=== PATIENT | female | born 1940 | race Caucasian/White ===

== ENCOUNTER 2017-10-15 10:24 | Inpatient (IN) | payer MEDICARE, OTHER ==
[~2017-10-15] VITALS: Ht 172.7 cm; Wt 68.9 kg
[2017-10-15] MEDS ORDERED: ONDANSETRON HCL/PF 4 MG/2 ML VIAL IVP ONE (10:30)
[2017-10-15] MEDS ORDERED: MORPHINE SULFATE INJ 2 MG/ML DISP.SYRIN IV ONE ×2 (10:30→11:30)
--- NOTE | 2017-10-15 10:30 | NUR ---
BBRA FROM STREET: RIGHT HIP FRACTURE/EXTERNALLY ROTATED S/P TRIP AND FALL MORPHINE 8MG IV GIVEN IN FIELD BY EMS. PT HAS LAC #18 IV ACCESS TRAIN CONTROL ELECTRONIC TECHNICIAN. PLACED ON MONITOR. AWAITING MD ORDER
[2017-10-15] MEDS ORDERED: MORPHINE SULFATE INJ 2 MG/ML DISP.SYRIN ONE ×2 (10:36→11:53)
[2017-10-15] MEDS ORDERED: ONDANSETRON HCL/PF 4 MG/2 ML VIAL ONE (10:36)
[2017-10-15] MEDS ORDERED: MORPHINE SULFATE INJ 4 MG/ML DISP.SYRIN ONE ×2 (10:37→11:54)
[2017-10-15 10:54] LABS: BASOPHILS % (AUTO) 0.4 % (0.0-2.0); EOSINOPHILS # (AUTO) 0.1 /CMM (0.0-0.7); EOSINOPHILS % (AUTO) 1.2 % (0.0-6.0); HEMATOCRIT 46 % (33-45); HEMOGLOBIN 16.2 g/dL (11.5-14.8); LYMPHOCYTES # (AUTO) 1.8 /CMM (0.8-4.8); LYMPHOCYTES % (AUTO) 23.6 % (20.0-44.0); MEAN CORPUSCULAR HEMOGLOBIN 32 PG (26.0-33.0); MEAN CORPUSCULAR HGB CONC 35 g/dl (31.0-36.0); MEAN CORPUSCULAR VOLUME 92 fL (82-100); MONOCYTES # (AUTO) 0.4 /CMM (0.1-1.30); MONOCYTES % (AUTO) 5.9 % (2.0-12.0); NEUTROPHILS # (AUTO) 5.3 /CMM (1.8-8.9); NEUTROPHILS % (AUTO) 68.9 % (43.0-81.0); PLATELET COUNT (AUTO) 206 /CMM (150-450); RDW COEFFICIENT OF VARIATION 11.1 (11.5-15.0); RED BLOOD CELL COUNT(AUTO) 5.03 MIL/uL (4.0-5.2); WHITE BLOOD COUNT (AUTO) 7.6 K/uL (4.3-11.0)
[2017-10-15] MEDS ORDERED: TRAV5DRO EACHEYE (10:59)
[2017-10-15] MEDS ORDERED: DULO60CA45 PO (10:59)
[2017-10-15] MEDS ORDERED: VORT20TA PO (10:59)
[2017-10-15] MEDS ORDERED: PRAV40TA3 PO (10:59)
[2017-10-15] MEDS ORDERED: LEVO75TA56 PO (10:59)
[2017-10-15] MEDS ORDERED: IBAN150T PO (11:00)
[2017-10-15 11:08] LABS: CALCIUM, SERUM 9.2 mg/dL (8.5-10.1); CARBON DIOXIDE 25 mmol/L (21-32); CHLORIDE 104 mmol/L (98-107); CREATININE 0.9 mg/dL (0.6-1.3); GLUCOSE 138 mg/dL (74-106); POTASSIUM 3.8 mmol/L (3.5-5.1); SODIUM SERUM 137 mmol/L (136-145); UREA NITROGEN, BLOOD 19 mg/dL (7-18)
[2017-10-15 11:11] LABS: INR 0.92 (0.87-1.13); PROTHROMBIN TIME 9.6 SECS (9.5-12.7)
--- NOTE | 2017-10-15 11:12 | NUR ---
CALLED OR, PAGED TO CALL US BACK
--- NOTE | 2017-10-15 12:01 | NUR ---
DR.RUTHERFORD GILLES MOLD SETTER
--- NOTE | 2017-10-15 12:15 | NUR ---
GAVE REPORT TO ALEJANDRA COOPER MEDSUR ROOM 306-1 DR MCKEE ACCEPTING
[2017-10-15] MEDS ORDERED: ONDANSETRON HCL/PF 4 MG/2 ML VIAL IVP PRN (12:30)
[2017-10-15] MEDS ORDERED: HYDROCODONE/APAP 10/325MG 1 EA TABLET PO PRN (12:30)
[2017-10-15] MEDS ORDERED: Z GUARD REMEDY 2 OZ OINT TP PRN (12:30)
[2017-10-15] MEDS ORDERED: MAG HYDROX/AL HYDROX/SIMETH 30 ML UDC PO PRN (12:30)
[2017-10-15] MEDS ORDERED: ACETAMINOPHEN 325 MG TABLET PO PRN (12:30)
[2017-10-15] MEDS ORDERED: ZOLPIDEM TARTRATE 5 MG TABLET PO PRN (12:30)
[2017-10-15] MEDS ORDERED: MAGNESIUM HYDROXIDE 30 ML UDC PO PRN (12:30)
[2017-10-15 14:39] LABS: PHOSPHORUS 2.7 mg/dL (2.5-4.9)
[2017-10-15 15:13] LABS: THYROID STIMULATING HORMONE 1.812 uIU/mL (0.358-3.74)
--- NOTE | 2017-10-15 15:13 | NUR ---
RN MS NOTES PT SEEN AND EXAMINED BY MISAEL PADRON, PLAN OF CARE DISCUSSED WITH PT, VERBALIZED UNDERSTANDING, MISAEL SPOKE WITH PT'S DAUGHTER BILL, INFORMED OF PLAN FOR SURGERY, ORDERS MADE.
[2017-10-15 16:00] VITALS: BP 111/75
[2017-10-15] MEDS: DULOXETINE HCL 30 MG CAPSULE.DR PO SCH (16:13)
[2017-10-15] MEDS: MORPHINE SULFATE INJ 2 MG/ML DISP.SYRIN IV PRN ×2 (16:14→21:24)
--- NOTE | 2017-10-15 18:30 | NUR ---
RN MS NOTES PT IN BED, AWAKE, ALERT AND ORIENTED, NOT IN DISTRESS, PAIN MEDICATION GIVEN ORDERED, PT GAVE CONSENT FOR RIGHT HIP INTRAMEDULLARY RODDING SCHEDULED FOR TOMORROW, DAUGHTER BROUGHT PT'S JEWELRY HOME, BELONGINGS LIST UPDATED, PT INFORMED OF PRE-OP PREPARATION, CALL LIGHT WITHIN REACH, ALL NEEDS ATTENDED.
[2017-10-15 20:00] VITALS: BP 127/73
--- NOTE | 2017-10-15 20:00 | NUR ---
MS/RN RECEIVE PATIENT AWAKE, ALERT, ORIENTED, COMFORTABLE, NO DISTRESS NOTED. SURGERY IN THE MORNING, TEACHINGS DONE, NPO AFTER MIDNIGHT, VERBALIZED UNDERSTANDING. CALL LIGHT IN REACH. WILL MONITOR.
[2017-10-15] MEDS: ATORVASTATIN 10 MG TABLET PO SCH (21:23)
[2017-10-15] MEDS: LATANOPROST EYE DROP 0.005% 2.5 ML BOTTLE EACHEYE SCH (22:00)
--- NOTE | 2017-10-15 22:30 | NUR ---
MS/RN PATIENT IS SLEEPING AT THIS TIME, AROUSABLE, APPEAR COMFORTABLE, NO SIGNS OF DISTRESS NOTED, CALL LIGHT IN REACH. WILL MONITOR.
[2017-10-16] VITALS (7 sets, daily range): BP systolic 91–172; BP diastolic 30–85
[2017-10-16 02:52] LABS: APPEARANCE,URINE CLEAR (CLEAR); BILIRUBIN,URINE NEGATIVE (NEGATIVE); BLOOD, URINE 1+ Ery/uL (NEGATIVE); COLOR,URINE YELLOW (YELLOW); KETONES,URINE NEGATIVE (NEGATIVE); LEUKOCYTE ESTERASE ,URINE NEGATIVE (NEGATIVE); NITRITE, URINE NEGATIVE (NEGATIVE); PROTEIN,URINE NEGATIVE (NEGATIVE); UGLUCOSE NEGATIVE (NEGATIVE); UROBILINOGEN,URINE 0.2 EU/dL (0.2)
[2017-10-16 03:07] LABS: BACTERIA,URINE None seen /HPF (None Seen); SQUAMOUS EPITHELIAL CELL,UR Few /HPF (None Seen)
[2017-10-16] MEDS: MORPHINE SULFATE INJ 2 MG/ML DISP.SYRIN IV PRN (05:26)
--- NOTE | 2017-10-16 06:21 | NUR ---
MS/RN SLEEPING AT THIS TIME, APPEAR COMFORTABLE, BREATHING EVEN AND UNLABORED, HAS BEEN MEDICATED WITH MORPHINE 2 MG IV NEEDED FOR C/O PAIN, NPO AFTER MIDNIGHT ORDERED, MORNING CARE WAS DONE. ALL NEEDS ATTENDED AT THIS TIME. WILL CONTINUE TO MONITOR.
[2017-10-16 06:35] LABS: BASOPHILS % (AUTO) 0.3 % (0.0-2.0); EOSINOPHILS % (AUTO) 0.3 % (0.0-6.0); HEMATOCRIT 43 % (33-45); HEMOGLOBIN 14.3 g/dL (11.5-14.8); LYMPHOCYTES # (AUTO) 1.1 /CMM (0.8-4.8); LYMPHOCYTES % (AUTO) 9.8 % (20.0-44.0); MEAN CORPUSCULAR HEMOGLOBIN 32 PG (26.0-33.0); MEAN CORPUSCULAR HGB CONC 34 g/dl (31.0-36.0); MEAN CORPUSCULAR VOLUME 94 fL (82-100); MONOCYTES # (AUTO) 0.6 /CMM (0.1-1.30); MONOCYTES % (AUTO) 6.1 % (2.0-12.0); NEUTROPHILS # (AUTO) 8.9 /CMM (1.8-8.9); NEUTROPHILS % (AUTO) 83.5 % (43.0-81.0); PLATELET COUNT (AUTO) 195 /CMM (150-450); RDW COEFFICIENT OF VARIATION 12.1 (11.5-15.0); RED BLOOD CELL COUNT(AUTO) 4.51 MIL/uL (4.0-5.2); WHITE BLOOD COUNT (AUTO) 10.7 K/uL (4.3-11.0)
[2017-10-16 06:46] LABS: ALANINE AMINOTRANSFERASE 29 U/L (12-78); ALBUMIN 3.5 g/dL (3.4-5.0); ALKALINE PHOSPHATASE 50 U/L (46-116); ASPARTATE AMINOTRANSFERASE 36 U/L (15-37); BILIRUBIN,TOTAL 0.8 mg/dL (0.2-1.0); CALCIUM, SERUM 8.7 mg/dL (8.5-10.1); CARBON DIOXIDE 32 mmol/L (21-32); CHLORIDE 100 mmol/L (98-107); CREATININE 0.8 mg/dL (0.6-1.3); GLUCOSE 144 mg/dL (74-106); POTASSIUM 3.9 mmol/L (3.5-5.1); SODIUM SERUM 135 mmol/L (136-145); TOTAL PROTEIN, SERUM 6.8 g/dL (6.4-8.2); UREA NITROGEN, BLOOD 21 mg/dL (7-18)
[2017-10-16] MEDS ORDERED: ANESTHESIA TRAY IN PYXIS 1 EA TRAY MC ONE (06:57)
--- NOTE | 2017-10-16 07:10 | NUR ---
RN OPEN NOTES RECEIVED REPORT FROM [employer] CUTTING SUPERVISOR NURSE. PATIENT IS ALERT AND ORIENTED TO NAME, PLACE AND TIME. NO SIGNS AND SYMPTOMS OF DISTRESS. BED IN LOW POSITION, LOCKED AND TWO SIDE RAILS ARE UP. CALL LIGHT WITHIN REACH FOR SAFETY. PRE-OP SURGERY. WILL CONTINUE TO ASSESS AND MONITOR PATIENT THROUGH OUT MY SHIFT
[2017-10-16] MEDS ORDERED: BACITRACIN 50000 UNITS/VIAL ONE (07:11)
[2017-10-16] MEDS ORDERED: BUPIVACAINE 0.5 % PF 150 MG/30 ML VIAL ONE (07:11)
[2017-10-16] MEDS: PANTOPRAZOLE 40 MG TABLET.DR PO SCH (07:19)
[2017-10-16] MEDS: LEVOTHYROXINE SODIUM 75 MCG TABLET PO SCH (07:19)
[2017-10-16] MEDS: DULOXETINE HCL 30 MG CAPSULE.DR PO SCH (07:20)
--- NOTE | 2017-10-16 07:22 | NUR ---
PATIENT IS OFF THE FLOOR FOR SURGERY
[2017-10-16] MEDS ORDERED: VORTIOXETINE HYDROBROMIDE 20 MG PO SCH (09:00)
--- NOTE | 2017-10-16 10:40 | NUR ---
PATIENT IS BACK TO THE UNIT. PLACED IN HER ROOM 329. PLACED ON VITAL SIGN MONITOR @15 MIN
[2017-10-16] MEDS: IV NS 0.9% 1,000 ML IV PRN ×2 (11:09→21:15)
[2017-10-16] MEDS ORDERED: oxyCODONE IR immediate release 5 MG CAPSULE PO PRN (11:30)
[2017-10-16] MEDS ORDERED: TRAMADOL HCL 50 MG TABLET PO PRN (11:30)
[2017-10-16] MEDS ORDERED: MORPHINE SULFATE INJ 4 MG/ML DISP.SYRIN IV PRN (11:30)
[2017-10-16] MEDS: CEFAZOLIN 2 GM in IV D5W 50 ML IV SCH ×2 (13:24→21:19)
[2017-10-16] MEDS ORDERED: POLYVINYL ALCOHOL 15 ML BOTTLE EACHEYE PRN (14:00)
--- NOTE | 2017-10-16 19:24 | NUR ---
RN CLOSING NOTES REPORT GAVE TO [employer] ARCHITECT NURSE. PATIENT IS IN BED. ALERT AND ORIENTED TO NAME, PLACE AND TIME. NO SIGNS AND SYMPTOMS OF DISTRESS. DENIED PAIN. IV SITE IS INTACT AND PATENT. ALL NURSING CARE ANTICIPATED AND MET. PATIENT KEPT SAFE AND CLEAN. BED IN LOW POSITION, LOCKED AND TWO SIDE RAILS ARE UP. CALL LIGHT WITHIN REACH FOR SAFETY.
--- NOTE | 2017-10-16 19:49 | NUR ---
MS/RN RECEIVE PATIENT AWAKE, ALERT, ORIENTED, S/P RT. HIP SURGERY, COMFORTABLE, NO C/O PAIN, NO DISTRESS NOTED, DRESSING INTACT AND DRY, FALL PRECAUTION. WILL MONITOR.
[2017-10-16] MEDS: LATANOPROST EYE DROP 0.005% 2.5 ML BOTTLE EACHEYE SCH (21:15)
[2017-10-16] MEDS: ATORVASTATIN 10 MG TABLET PO SCH (21:15)
--- NOTE | 2017-10-16 22:00 | NUR ---
MS/RN PATIENT DOES NOT WANT TO BE DISTURBED WHEN SLEEPING.
[2017-10-17] VITALS (7 sets, daily range): BP systolic 106–120; BP diastolic 46–56
[2017-10-17] MEDS: CEFAZOLIN 2 GM in IV D5W 50 ML IV SCH (05:06)
--- NOTE | 2017-10-17 06:03 | NUR ---
MS/RN AWAKE, COMFORTABLE, WATCHING TV, MORNING CARE HAS BEEN DONE, TOLERATED, SLEPT GOOD THE WHOLE SHIFT, ALL NEEDS ATTENDED AT THIS TIME. WILL CONTINUE TO MONITOR.
--- NOTE | 2017-10-17 07:20 | NUR ---
RN OPEN NOTES RECEIVED REPORT FROM EMERGENCY COMMUNICATIONS OFFICER NURSE. PATIENT IS IN BED, AWAKE. PATIENT IS ALERT AND ORIENTED TO NAME, PLACE AND TIME. NO SIGNS AND SYMPTOMS OF DISTRESS. BED IN LOW POSITION, LOCKED AND TWO SIDE RAILS ARE UP. CALL LIGHT WITHIN REACH FOR SAFETY. WILL CONTINUE TO ASSESS AND MONITOR PATIENT THROUGH OUT MY SHIFT
[2017-10-17] MEDS: PANTOPRAZOLE 40 MG TABLET.DR PO SCH (07:21)
[2017-10-17] MEDS: LEVOTHYROXINE SODIUM 75 MCG TABLET PO SCH (07:21)
[2017-10-17] MEDS ORDERED: CA C PO (07:28)
[2017-10-17] MEDS ORDERED: VITA100014 PO (07:28)
[2017-10-17 07:33] LABS: ALANINE AMINOTRANSFERASE 21 U/L (12-78); ALBUMIN 2.5 g/dL (3.4-5.0); ALKALINE PHOSPHATASE 33 U/L (46-116); ASPARTATE AMINOTRANSFERASE 34 U/L (15-37); BILIRUBIN,TOTAL 0.4 mg/dL (0.2-1.0); CALCIUM, SERUM 7.6 mg/dL (8.5-10.1); CARBON DIOXIDE 28 mmol/L (21-32); CHLORIDE 108 mmol/L (98-107); CREATININE 0.9 mg/dL (0.6-1.3); GLUCOSE 125 mg/dL (74-106); PHOSPHORUS 2.6 mg/dL (2.5-4.9); POTASSIUM 3.6 mmol/L (3.5-5.1); SODIUM SERUM 142 mmol/L (136-145); TOTAL PROTEIN, SERUM 5.2 g/dL (6.4-8.2); UREA NITROGEN, BLOOD 16 mg/dL (7-18)
[2017-10-17 08:24] LABS: BASOPHILS % (AUTO) 0.2 % (0.0-2.0); EOSINOPHILS % (AUTO) 0.5 % (0.0-6.0); HEMATOCRIT 25 % (33-45); HEMOGLOBIN 8.6 g/dL (11.5-14.8); LYMPHOCYTES # (AUTO) 1.7 /CMM (0.8-4.8); MEAN CORPUSCULAR HEMOGLOBIN 32 PG (26.0-33.0); MEAN CORPUSCULAR HGB CONC 34 g/dl (31.0-36.0); MEAN CORPUSCULAR VOLUME 94 fL (82-100); MONOCYTES # (AUTO) 0.7 /CMM (0.1-1.30); MONOCYTES % (AUTO) 8.4 % (2.0-12.0); NEUTROPHILS # (AUTO) 5.8 /CMM (1.8-8.9); NEUTROPHILS % (AUTO) 69.9 % (43.0-81.0); PLATELET COUNT (AUTO) 144 /CMM (150-450); RDW COEFFICIENT OF VARIATION 12.3 (11.5-15.0); WHITE BLOOD COUNT (AUTO) 8.3 K/uL (4.3-11.0)
[2017-10-17] MEDS: DULOXETINE HCL 30 MG CAPSULE.DR PO SCH (08:26)
--- NOTE | 2017-10-17 08:40 | NUR ---
DR MCKEE AND DR KATELYNN CHIN BEDSIDE
--- NOTE | 2017-10-17 08:51 | NUR ---
DR MCKEE MADE AWARE OF PATIENT HGB LEVEL DROPPED FROM 14.3 TO TO 8.6
[2017-10-17] MEDS ORDERED: ERGOCALCIFEROL (VITAMIN D 2) 50,000 UNIT CAPSULE PO SCH (09:00)
[2017-10-17 10:51] LABS: HEMATOCRIT 25 % (33-45); HEMOGLOBIN 8.2 g/dL (11.5-14.8); MEAN CORPUSCULAR HEMOGLOBIN 31 PG (26.0-33.0); MEAN CORPUSCULAR HGB CONC 33 g/dl (31.0-36.0); MEAN CORPUSCULAR VOLUME 94 fL (82-100); PLATELET COUNT (AUTO) 139 /CMM (150-450); RED BLOOD CELL COUNT(AUTO) 2.62 MIL/uL (4.0-5.2); WHITE BLOOD COUNT (AUTO) 7.8 K/uL (4.3-11.0)
--- NOTE | 2017-10-17 12:45 | NUR ---
PT AT BEDSIDE FOR EVALUATION
[2017-10-17] MEDS ORDERED: oxyCODONE IR immediate release 5 MG CAPSULE PO PRN (13:46)
[2017-10-17] MEDS: HYDROCODONE/APAP 5/325MG 1 EACH TABLET PO PRN (15:33)
[2017-10-17] MEDS: RIVAROXABAN 10 MG TABLET PO SCH (17:00)
--- NOTE | 2017-10-17 17:06 | NUR ---
XARELTO HELD. PATIENT IS PENDING BLOOD TRANSFUSION. PLATELETS 139 AND H/H = 8.2/25 CHARGE NURSE MADE AWARE
--- NOTE | 2017-10-17 18:45 | NUR ---
RN CLOSING NOTES PATIENT IS IN BED. ALERT AND ORIENTED TO NAME, PLACE AND TIME. NO SIGNS AND SYMPTOMS OF DISTRESS. DENIED PAIN. IV SITE IS INTACT AND PATENT. CURRENTLY RUNNING BLOOD TRANSFUSION. NEXT VITAL SIGNS SET TO BE CHECK AT 1940 AND UPON COMPLETION. ALL NURSING CARE ANTICIPATED AND MET. PATIENT KEPT SAFE AND CLEAN. BED IN LOW POSITION, LOCKED AND TWO SIDE RAILS ARE UP. CALL LIGHT WITHIN REACH FOR SAFETY. WILL ENDORSE TO PAPERHANGER APPRENTICE NURSE
--- NOTE | 2017-10-17 19:30 | NUR ---
RN NOTE; RECEIVED PT IN BED AWAKE AND ALERT. BREATHING EVENLY. NO SOB. NAD. SKIN WARM AND DRY, ON ONGOING BLOOD TRANSFUSION W/ NO CO,PLICATIONS AT THIS TIME. NO SOB.NO CP. NO C/O PAIN OR DISCOMFORT. DENIED FLAN PAIN. AFEBRILE. IV SITE INTACT AND PATENT. NEEDS ATTENDED. CALL LIGHT WITHIN REACH. SR ON TELE MONITOR. WILL CONT TO MONITOR . Addendum: 10/18/17 at 0238 by TUNG MARTE RN PT NOT ON TELE MONITOR,
--- NOTE | 2017-10-17 20:32 | NUR ---
BLOOD TRANSFUSION COMPLETED W/ NO COMPLICATIONS. VS:WNL. AFEBRILE W/ NO C/O PAIN OR DISCOMFORT, PT STATED DOES NOT WANT TO BE DISTURBED DURING THE NIGHT,
[2017-10-17] MEDS: LATANOPROST EYE DROP 0.005% 2.5 ML BOTTLE EACHEYE SCH (21:28)
[2017-10-17] MEDS: ATORVASTATIN 10 MG TABLET PO SCH (21:28)
--- NOTE | 2017-10-17 21:30 | NUR ---
LIPITOR WAS REFUSEDX3 BY THE PT. RISK VS BENEFIT WERE EXPLAINED TO THE PT.
[2017-10-18] MEDS: HYDROCODONE/APAP 5/325MG 1 EACH TABLET PO PRN (03:09)
--- NOTE | 2017-10-18 03:10 | NUR ---
DURING THE ROUND TO THE PT'S ROOM, PT REPORTED, SHE DID NOT HAVE A GOOD NIGHT AND WAS NOT ABLE TO SLEEP FOR THE RIGHT HIP PAIN. PT WAS SLEEPING DURING THE PREVIOUS ROUNDS. ASSISTED PT W/ REPOSITIONING , PT WAS PROVIDED W/ A WARM BLANKET AND NORCO GIVEN FOR C/O R HIP PAIN. ALL OTHER NEEDS ATTENDED AND PT WAS ENCOURAGED TO ASK FOR ASSISTANCE AND USE THE CALL LIGHT . BED LOW LOCKED AND CALL LIGHT WITHIN REACH WILL CONT TO MONITOR,
--- NOTE | 2017-10-18 04:15 | NUR ---
PT IN BED SLEEPING, BREATHING EVENLY. W/ NO S/S OR C/O PAIN OR DISCOMFORT, WILL CONT TO MONITOR,
--- NOTE | 2017-10-18 06:43 | NUR ---
PT IN BED AWAKE AND ALERT. BREATHING EVENLY. NO SOB. NO C/O PAIN OR DISCOMFORT. DRESSING ON R HIP CDI. F/C IN PLACE DRAINING CLEAR YELLOW URINE. NEEDS MET. BED LOW LOCKED .CALL LIGHT WITHIN REACH. WILL CONT TO MONITOR, AND WILL ENDORSE TO AM SHIFT FOR [place].
--- NOTE | 2017-10-18 07:30 | NUR ---
RN MS NOTES PT AWAKE, IN BED, ALERT AND ORIENTED, WATCHING TV AND HAVING BREAKFAST, NO COMPLAINT OF PAIN AT THIS TIME, RESPIRATIONS NORMAL AND NOT LABORED, CALL LIGHT WITHIN REACH, KEPT COMFORTABLE, PLAN OF CARE DISCUSSED WITH PT, VERBALIZED UNDERSTANDING.
[2017-10-18 08:00] VITALS: BP 112/66
[2017-10-18] MEDS: LEVOTHYROXINE SODIUM 75 MCG TABLET PO SCH (09:01)
[2017-10-18] MEDS: PANTOPRAZOLE 40 MG TABLET.DR PO SCH (09:02)
[2017-10-18] MEDS: DULOXETINE HCL 30 MG CAPSULE.DR PO SCH (09:02)
[2017-10-18] MEDS ORDERED: oxyCODONE IR immediate release 5 MG CAPSULE PO PRN (10:00)
[2017-10-18] MEDS ORDERED: TRAMADOL HCL 50 MG TABLET PO PRN (10:00)
[2017-10-18] MEDS ORDERED: ACETAMINOPHEN 325 MG TABLET PO SCH (10:00)
--- NOTE | 2017-10-18 11:05 | NUR ---
RN MS NOTES PT IN BED, AWAKE AND ALERT, PT SEEN BY DR. LINTON, PLAN OF CARE DISCUSSED WITH PT, ORDERS MADE AND CARRIED OUT.
[2017-10-18 11:50] LABS: CALCIUM, SERUM 8.1 mg/dL (8.5-10.1); CARBON DIOXIDE 30 mmol/L (21-32); CHLORIDE 105 mmol/L (98-107); CREATININE 0.8 mg/dL (0.6-1.3); GLUCOSE 121 mg/dL (74-106); POTASSIUM 3.3 mmol/L (3.5-5.1); SODIUM SERUM 140 mmol/L (136-145); UREA NITROGEN, BLOOD 14 mg/dL (7-18)
[2017-10-18 12:09] LABS: BASOPHILS % (AUTO) 0.3 % (0.0-2.0); EOSINOPHILS # (AUTO) 0.2 /CMM (0.0-0.7); EOSINOPHILS % (AUTO) 1.9 % (0.0-6.0); HEMATOCRIT 29 % (33-45); HEMOGLOBIN 9.6 g/dL (11.5-14.8); LYMPHOCYTES # (AUTO) 1.5 /CMM (0.8-4.8); LYMPHOCYTES % (AUTO) 16.7 % (20.0-44.0); MEAN CORPUSCULAR HEMOGLOBIN 31 PG (26.0-33.0); MEAN CORPUSCULAR HGB CONC 34 g/dl (31.0-36.0); MEAN CORPUSCULAR VOLUME 93 fL (82-100); MONOCYTES # (AUTO) 0.8 /CMM (0.1-1.30); MONOCYTES % (AUTO) 8.6 % (2.0-12.0); NEUTROPHILS # (AUTO) 6.4 /CMM (1.8-8.9); NEUTROPHILS % (AUTO) 72.5 % (43.0-81.0); PLATELET COUNT (AUTO) 154 /CMM (150-450); RDW COEFFICIENT OF VARIATION 12.6 (11.5-15.0); RED BLOOD CELL COUNT(AUTO) 3.06 MIL/uL (4.0-5.2); WHITE BLOOD COUNT (AUTO) 8.9 K/uL (4.3-11.0)
[2017-10-18] MEDS ORDERED: ACETAMINOPHEN 650 MG/20.3 ML UDC PO SCH (13:00)
[2017-10-18] MEDS ORDERED: POTASSIUM CHLORIDE 20 MEQ TAB.PRT.SR PO SCH (13:00)
[2017-10-18] MEDS: ACETAMINOPHEN 325 MG TABLET PO SCH ×2 (14:20→18:06)
[2017-10-18] MEDS ORDERED: RIVA10TA PO (15:43)
[2017-10-18 16:00] VITALS: BP 134/64
[2017-10-18] MEDS: RIVAROXABAN 10 MG TABLET PO SCH (18:11)
--- NOTE | 2017-10-18 18:44 | NUR ---
RN MS NOTES PT IN BED, AWAKE, WATCHING TV, NO COMPLAINT OF PAIN AT THIS TIME, RESPIRATIONS NORMAL AND NOT LABORED, EXPLAINED TO PT THE NEED TO REMOVE HER SYED, PT REFUSED TO HAVE IT REMOVED, STATED THAT SHE IS STILL HAVING DIFFICULTY TRANSFERING FROM BED TO CHAIR, TOLERATING PHYSICAL THERAPY EXERCISES WELL, PM MEDS GIVEN ORDERED, ALL NEEDS ATTENDED.
--- NOTE | 2017-10-18 19:30 | NUR ---
RN NOTE; RECEIVED PT IN BED AWAKE AND ALERT. REPORTED FEELING BETTER. BREATHING EVENLY. NO SOB. NAD. SKIN WARM AND DRY, DRESSING ON R HP CDI. DENIED PAIN. F/C IN PLACE. DRAINING CLEAR YELLOW URINE. PT REFUSED D/CING F/C AT THIS TIME AND WANTS TO WAIT TILL [facility]. NEEDS ATTENDED. CALL LIGHT WITHIN REACH. . WILL CONT TO MONITOR .
[2017-10-18 20:00] VITALS: BP 111/60
[2017-10-18] MEDS: LATANOPROST EYE DROP 0.005% 2.5 ML BOTTLE EACHEYE SCH (21:23)
[2017-10-18] MEDS: ATORVASTATIN 10 MG TABLET PO SCH (21:23)
--- NOTE | 2017-10-18 21:23 | NUR ---
PT REFUSED LIPITOR 10MG . RISK VS BENEFIT WERE EXPLAINED TO THE PT.
[2017-10-19] MEDS: ACETAMINOPHEN 325 MG TABLET PO SCH ×4 (00:15→17:26)
--- NOTE | 2017-10-19 06:29 | NUR ---
RN NOTE; PT IN BED SLEEPING. BREATHING EVENLY. NO ACUTE EVENT DURING THE NIGHT. HAD A GOOD NIGHT SLEEP W/ NO C/O PAIN OR DISCOMFORT . F/C STILL IN PLACE DRAINING CLEAR YELLOW URINE. SX DRESSING CDI. NEEDS ATTENDED. CALL LIGHT WITHIN REACH. WILL CONT TO MONITOR AND WILL ENDORSE TO AM SHIFT FOR [place].
[2017-10-19 08:00] VITALS: BP 118/66
--- NOTE | 2017-10-19 08:00 | NUR ---
m/s brass pickler: initial assessment received pt up in chair awake, a/ox3 with forgetfulness. s/p right hip intramedullary rodding. dressing to right hip clean and dry. noted with ecchymoses to right lower posterior thigh and leg area. no c/o pain at this time. instructed to call for assistance. will continue to monitor.
[2017-10-19] MEDS: PANTOPRAZOLE 40 MG TABLET.DR PO SCH (08:54)
[2017-10-19] MEDS: DULOXETINE HCL 30 MG CAPSULE.DR PO SCH (08:55)
[2017-10-19] MEDS: LEVOTHYROXINE SODIUM 75 MCG TABLET PO SCH (08:55)
--- NOTE | 2017-10-19 10:30 | NUR ---
m/s drug safety specialist: notes up with p.t. using fww, rukhsana. well. still awaiting for bed in [facility].
--- NOTE | 2017-10-19 11:15 | NUR ---
m/s group leader semiconductor processing: ortho f/u seen by dr. de luna at this time and informed pt that her lane needs to come out today, pt agreed to take it out this afternoon. instructed to call for assistance. will continue to monitor.
--- NOTE | 2017-10-19 11:50 | NUR ---
m/s jesse: notes daughter on the phone and informed me that she hasn't heard anything from case management. called sarah (case management) and informed me that pt is leaving today at 1700 at [facility]. daughter made aware and will come visit in an hour. pt made aware.
[2017-10-19] MEDS ORDERED: ERGOCALCIFEROL (VITAMIN D 2) 50,000 UNIT CAPSULE PO SCH (12:30)
--- NOTE | 2017-10-19 12:52 | NUR ---
m/s study specialist: notes received order to d'c to [facility] when bed available per dr. brizuela. pt to be pick up driver at 1700 today. pt aware.
--- NOTE | 2017-10-19 14:30 | NUR ---
m/s desktop support associate: notes daughter here and concern re: codeine medication and wants it discontinue due to pt gets more confused, wobbly, and severely constipated. also pt wants it discontinue. dr. brizuela notified and made aware with order to d'c oxy ir. order carried out and acknowledged. f/c removed, rukhsana. well and obtained 750ml of clear ezio urine. instructed to call for assistance. will continue to monitor.
[2017-10-19 15:04] LABS: CALCIUM, SERUM 8.2 mg/dL (8.5-10.1); CARBON DIOXIDE 27 mmol/L (21-32); CHLORIDE 103 mmol/L (98-107); CREATININE 0.7 mg/dL (0.6-1.3); GLUCOSE 126 mg/dL (74-106); POTASSIUM 3.9 mmol/L (3.5-5.1); SODIUM SERUM 137 mmol/L (136-145); UREA NITROGEN, BLOOD 16 mg/dL (7-18)
--- NOTE | 2017-10-19 17:00 | NUR ---
m/s transit manager: notes discharged instructions given to pt and verbalized understanding. all belongings and valuables returned to pt. pt moved her bowel and bladder using a bsc with assist. kept clean and dry by print shop manager. awaiting for ambulance to waste picker the pt. instructed to call for assistance. will continue to monitor.
[2017-10-19] MEDS: RIVAROXABAN 10 MG TABLET PO SCH (17:27)
--- NOTE | 2017-10-19 17:36 | NUR ---
m/s personal financial advisor: notes ambulance here and report given to one of the crew. h/l removed with tip intact, with no swelling, no redness, and no bleeding noted.
--- NOTE | 2017-10-19 18:00 | NUR ---
m/s cnc machine programmer: discharged discharged to [facility] in stable condition with all valuables and d'c papers accompanied by ambulance crew.
== END 2017-10-19 18:00 | DRG 482 ==
LOC: ER 10:26 → MED 11:41
PROVIDERS: ADMIT Internal Medicine; ATTEND Internal Medicine
PROC: 0QS606Z Reposition Right Upper Femur with Intramedullary Internal Fixation Device, Open Approach (ICD-10-PCS; principal; 2017-10-16 07:54)
PROC: 30233N1 Transfusion of Nonautologous Red Blood Cells into Peripheral Vein, Percutaneous Approach (ICD-10-PCS; 2017-10-17)
DX: S72.21XA Displaced subtrochanteric fracture of right femur, initial encounter for closed fracture (principal); E03.9 Hypothyroidism, unspecified; E78.5 Hyperlipidemia, unspecified; F32.9 Major depressive disorder, single episode, unspecified; W01.0XXA Fall on same level from slipping, tripping and stumbling without subsequent striking against object, initial encounter; H40.9 Unspecified glaucoma; I10 Essential (primary) hypertension; R79.89 Other specified abnormal findings of blood chemistry; E55.9 Vitamin D deficiency, unspecified; T45.8X5A Adverse effect of other primarily systemic and hematological agents, initial encounter; Y93.01 Activity, walking, marching and hiking; Y92.410 Unspecified street and highway as the place of occurrence of the external cause
CPT/HCPCS: 36415; 71010-TC; 73502; 73552; 73562; 80048-TC; 80053-TC; 80061-TC; 81000-TC; 82306; 83735-TC; 84100-TC; 84439-TC; 84443-TC; 85025-TC; 85027-TC; 85730-TC; 86850-TC; 86921-TC; 87081-TC; 93307-TC; 97110-TC; 97116-TC; 97530-TC; A4606; A6209; A6402; C1713; J0690; J1100; J1885; J2270; J2370; J2405; J2704; J3490; J7030; J7040; J7060; P9016-BL; Z7610

== ENCOUNTER 2017-11-04 13:23 | Outpatient (CLI) | payer MEDICARE, OTHER ==
[~2017-11-04 13:23] MED LIST: CA C PO; DULO60CA45 PO; IBAN150T PO; LEVO75TA56 PO; PRAV40TA3 PO; RIVA10TA PO; TRAV5DRO EACHEYE; VITA100014 PO; VORT20TA PO
[2017-11-04 14:29] VITALS: BP 117/74
== END 2017-11-04 23:59 | disposition home or self-care (01) ==
LOC: MSC 13:23
PROVIDERS: ATTEND Internal Medicine
DX: S72.21XD Displaced subtrochanteric fracture of right femur, subsequent encounter for closed fracture with routine healing (principal); F32.9 Major depressive disorder, single episode, unspecified; E03.9 Hypothyroidism, unspecified; H40.9 Unspecified glaucoma; X58.XXXD Exposure to other specified factors, subsequent encounter